=== PATIENT | male | born 1955 | race Caucasian/White ===

== ENCOUNTER → 2020-07-06 07:54 | Outpatient (CLI) | payer MEDICARE ==
[2020-05-20 12:49] VITALS: BMI 27.2
[~2020-07-06 07:54] MED LIST: AMBIEN10 MG PO; BAYER CHEWABLE81 MG PO; FLAGYL500 MG PO; LEVOFLOXACIN500 MG PO; LIPITOR40 MG PO; MUCINEX600 MG PO; OMEPRAZOLE20 M1 PO; TORADOL10 MG PO; VYVANSE50 MG PO; ZOFRAN4 MG PO
== END | disposition home or self-care (01) ==
LOC: D.CT 07:54
PROVIDERS: ATTEND Nurse Practitioner
DX: K57.92 Diverticulitis of intestine, part unspecified, without perforation or abscess without bleeding (principal)

== ENCOUNTER 2020-08-04 09:26 | Inpatient (IN) | payer MEDICARE ==
[~2020-08-04] VITALS: Ht 180.3 cm; Wt 83.9 kg
[2020-08-10] MEDS ORDERED: VYVANSE50 MG PO (10:27)
[2020-08-11 08:45] LABS: BASOPHILS 0.3 % (0-2); HEMATOCRIT 49.4 % (42.0-54.0); HEMOGLOBIN 17.2 g/dL (13.5-17.5); IMMATURE GRANULOCYTES 0.3 % (0-5); LYMPHOCYTE ABS# 1.47 10x3/uL (1.32-3.57); LYMPHOCYTES 23.2 % (15-50); MCH 34.5 pg (26.0-34.0); MCHC 34.8 g/dL (31.0-37.0); MCV 99.2 fL (80.0-100.0); MEAN PLATELET VOLUME 9.6 fL (7.4-10.4); MONOCYTES 8.2 % (2-11); NEUTROPHIL ABS# 4.12 10x3/uL (1.78-5.38); PLATELET COUNT 229 10x3/uL (130-400); RBC 4.98 10x6/uL (4.20-6.10); WBC 6.3 10x3/uL (4.8-10.8)
[2020-08-11 08:54] LABS: CALC OSMOLALITY 278 mosm/kg (275-300); CALCIUM 10.1 mg/dL (8.5-10.1); CARBON DIOXIDE 21.2 mmol/L (21.0-32.0); CHLORIDE - SERUM 104 mmol/L (98-107); GLUCOSE 109 mg/dL (74-106); POTASSIUM - SERUM 4.6 mmol/L (3.5-5.1); SODIUM 138 mmol/L (136-145); UREA NITROGEN 18 mg/dL (7-18); eGFR NON AFRICAN AMERICAN 80 mL/min (90-120)
[2020-08-11] MEDS ORDERED: LEXAPRO20 MG PO (10:20)
[2020-08-11] MEDS ORDERED: LISINOPRIL10 MG PO (10:21)
[2020-08-11] MEDS ORDERED: AMBIEN10 MG PO (10:21)
[2020-08-11 10:29] VITALS: BP 146/88; BMI 26.0
[2020-08-11 16:40] VITALS: BP 155/93
[2020-08-11 17:41] VITALS: BP 148/85; BMI 25.8
[2020-08-11 21:00] VITALS: BP 147/82
[2020-08-12 00:54] VITALS: BP 124/73
--- NOTE | 2020-08-12 03:54 | NUR ---
ASSESSED AT THE BEGINNING OF THE SHIFT. PT IS ALERT AND ORIENTED, ABLE TO VERBALIZE NEEDS. HE WAS ANXIOUS TO GET STARTED WALKING EVEN THOURH IT WAS VERY SOON AFTER SURGERY. HE WAS WALKED WITH STAFF AROUND THE STATION MULTIPLE TIMES AND THEN WENT BACK TO BED. HE HAS EVEN GOTTEN BOWEL SOUNDS X'S 3 ALREADY. DRESSING REMAINS DRY AND INTACT. HE HAS A LEGAL RECORDS CLERK OF [employer] WHICH IS CONTROLLING HIS PAIN AND O2 AT 2 LITERS IF NEEDED.
[2020-08-12 05:00] VITALS: BP 96/64
[2020-08-12 08:09] VITALS: BP 138/89
--- NOTE | 2020-08-12 09:01 | NUR ---
ALERT AND ORIENTED. ASSESSMENT COMPLETE. DENIES NEEDS. BED LOW. CALL ORELLANA AND PERSONAL ITEMS IN REACH. WILL CONTINUE TO MONITOR.
--- NOTE | 2020-08-12 10:43 | NUR ---
GONZALEZ CLAMPED FOR BLADDER TRAINING.
--- NOTE | 2020-08-12 10:53 | NUR ---
SPOKE WITH DR AL ABOUT POSSIBLY REMOVING PATIENT'S GONZALEZ. STATES GONZALEZ NEEDS TO STAY. GONZALEZ UNCLAMPED.
[2020-08-12 12:20] VITALS: BP 138/76
[2020-08-12 17:29] VITALS: BP 134/76
[2020-08-12 21:03] VITALS: BP 132/71
[2020-08-13 04:29] VITALS: BP 124/79
--- NOTE | 2020-08-13 07:54 | NUR ---
ALERT AND ORIENTED. ASSESSMENT COMPLETE. DENIES NEEDS. BED LOW. CALL ORELLANA AND PERSONAL ITEMS IN REACH. WILL CONTINUE TO MONITOR.
[2020-08-13 10:07] VITALS: BP 128/69
--- NOTE | 2020-08-13 13:32 | NUR ---
PATIENT C/O FEELING WORSE TODAY THAN PAST 2 DAYS. STATES FEELS MORE BLOATED AND HAS STOPPED PASSING GAS LIKE HE WAS BEFORE. SPOKE WITH DR AL. STATES TO MAKE PATIENT NPO NOW. KUB ORDERED.
--- NOTE | 2020-08-13 13:36 | NUR ---
PATIENT MADE AWARE OF NPO STATUS AND KUB. VERBALIZED UNDERSTANDING.
[2020-08-13 15:00] VITALS: BP 137/77
[2020-08-13 18:28] VITALS: BP 134/72
--- NOTE | 2020-08-13 18:59 | NUR ---
GONZALEZ REMOVED PER ORDER.
[2020-08-14 04:53] VITALS: BP 115/83
[2020-08-14 09:22] VITALS: BP 141/74
--- NOTE | 2020-08-14 10:22 | NUR ---
PATIENT HOPING TO BE DC TODAY, STATES STILL NOT MOVING MUCH GAS BUT IS WALKING A LOT. NO NEEDS VOICED, REDRESSED IV SITE IT WAS LEAKING AND PATIENT REFUSED TO BE STUCK AGAIN. CL IN REACH CONTINUE WITH PLANOF CARE
[2020-08-14 13:03] VITALS: Ht 180.3 cm; Wt 83.9 kg
--- NOTE | 2020-08-14 13:51 | NUR ---
PATIENT FRUSTRATED GAS NOT SEEMS TO BE MOVING, ADMINISTERED REGLAN ORDERED. PATIENT STATES HE HAS WALKED, PACED ERC AND JUST WANTS SOMETHING DONE. EXPLAINED WE ARE DOING BEST WE CAN SOMETIMES IT JUST TAKES TIME. CL IN REACH CONTINUE WITH PLAN OF CARE
[2020-08-14 14:42] VITALS: BP 139/70
--- NOTE | 2020-08-14 14:49 | NUR ---
I have reviewed this patient and I concur with the Shift Assessment completed by the Licensed Practical Nurse today this shift.
[2020-08-14 18:55] VITALS: BP 149/78
[2020-08-14 20:00] VITALS: BP 114/78
--- NOTE | 2020-08-14 22:08 | NUR ---
PT LYING IN BED AT THIS TIME. NO COMPLAINTS OF PAIN NOR DISTRESS NOTED. ABLE TO MAKE WANTS AND NEEDS KNOWN CLEARLY. ABD INCISION DRESSING ARE DRY AND INTACT. BED IN LOWEST POSITION, CALL ORELLANA LIGHT IN REACH.
[2020-08-15] VITALS: BP 134/65
[2020-08-15 04:00] VITALS: BP 138/74
--- NOTE | 2020-08-15 09:30 | NUR ---
PATIENT UP AMBULATING AROUND NURSES STATION VERBALIZES THAT HE IS FRUSTRATED THAT HE IS "STILL BLOATED AND NOT PASSING GAS" EXPLAINED TO PATIENT THAT THIS TAKES TIME AND THAT AMBULATING DOES HELP. PATIENT NOT HAPPY WITH CIRCUMSTANCES. CONTINUE WITH PLAN OF CARE
--- NOTE | 2020-08-15 10:20 | MORECARE ---
CASE MANAGEMENT DISCHARGE SUMMARY PATIENT: JOSUE JORDAN UNIT: [id number] ADM DATE: 08/11/20 AGE: 64 : 55 SEX: M ROOM/BED: D.2218 AUTHOR: JAX MERAZ PHYSICIAN: REFERRING PHYSICIAN: GASTON AL MD DATE OF SERVICE: 08/15/20 Case Management Discharge Planning Summary DCP REVIEW SUMMARY ANTICIPATED D/C DATE: EXPECTED LOS : CASE STATUS: DCP Initiated INITIAL REVIEW: 08/11/2020 INITIAL REVIEWER: Kathy Black FINAL DISCHARGE DISPOSITION: 01 : Home or Self Care (Routine Discharge) FINAL REVIEWER: FINAL REVIEW DATE: DCP Focus Questions & Answers QUESTION: ANSWER : PATIENT: JOSUE JORDAN ENCOUNTER: [id number] MEDICAL RECORD#: [id number] ADMISSION DATE: 08/11/2020 DISCHARGE DATE: ATTENDING MD: GASTON RAMOS : AGE: 64 MARITAL STATUS: M DC PLAN ID: [id number] FACILITY: [facility] PRINTED ON: 08/15/20 10:20 CT All edits/amendments must be made on the electronic document DICTATION DATE: 08/15/20 1020 [employer] DRIVER: DM 08/15/20 1020 RPT#: [id number] DC DATE: STATUS: ADM IN [facility] [address] [place] [address] END OF REPORT
--- NOTE | 2020-08-15 10:31 | MORECARE ---
CASE MANAGEMENT DISCHARGE SUMMARY PATIENT: JOSUE JORDAN UNIT: [id number] ADM DATE: 08/11/20 AGE: 64 : 55 SEX: M ROOM/BED: D.2218 AUTHOR: MARIYADOC PHYSICIAN: REFERRING PHYSICIAN: GASTON AL MD DATE OF SERVICE: 08/15/20 Case Management Discharge Planning Summary COMMENTS ENTERED DATE: 08/15/20 10:26 CT COMMENT TYPE: Discharge Planning REVIEWER: Kathy RANGEL IS HIS PCP [facility] ENTERED DATE: 08/15/20 10:24 CT COMMENT TYPE: Discharge Planning REVIEWER: Kathy Black CM met with patient to complete initial dc planning assessment. CM educated patient on the CM role and verbal consent given by patient to complete assessment. Patient lives at home with his where he is independent with his care. At discharge patient plans to return home and feels this is a safe discharge. CM discussed availability of home health, rehab services, and medical equipment. Patient denied known discharge needs at this time. 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 CM will continue to follow and will assist as needed with dc plans/needs. DCP REVIEW SUMMARY ANTICIPATED D/C DATE: EXPECTED LOS : CASE STATUS: DCP Initiated INITIAL REVIEW: 08/11/2020 INITIAL REVIEWER: Kathy Black FINAL DISCHARGE DISPOSITION: 01 : Home or Self Care (Routine Discharge) FINAL REVIEWER: FINAL REVIEW DATE: DCP Focus Questions & Answers DCP Screen QUESTION: ANSWER High Risk Factors: : None Walking limitation: Patient stated self rated walking limitation present? : No Age: : 45 - 64 Prior living environment: : Lives with others Disability ranking: : Grade 1: No significant disability DCP Evaluation QUESTION: ANSWER Patient's ability to cope with chronic illness : d. No chronic illness Patient and/or caregiver agree upon recommended discharge plan? : Yes Family / Caregiver's ability to cope with chronic illness: : a. Adequate (ability to meet patient's medical needs, ensures patient attends medical appts.) Patient's current cognitive status: : *Oriented to person, place, situation, time and present Does the patient have the ability to pay for or attain post discharge needs / services? : Yes Functional screen assessment: : No issues identified Physical Status: : Independent with ADL's Family / Caregiver's ability to cope with chronic illness: : a. Adequate (ability to meet patient's medical needs, ensures patient attends medical appts.) Equipment needed for post hospitalization: : None Is there a likelihood that the patient will require additional services to return to the preadmission environment? : No Living Arrangements: : Home with Spouse/Significant Other Results of this evaluation have been discussed with: : Patient Patient with capacity for self-care or can be cared for in same environment as prior to hospitalization? : Yes Baseline cognitive status: : Oriented to place Physical environment modification needed / anticipated for discharge: : No Medication Management: : Patient states can afford medications Planned post hospital services available for patient? : No Pharmacy name(s): : [facility] Planned post hospital services covered by insurance plan? : No Does Patient have transportation to get home and to follow-up medical appointments when discharged from the hospital? : Yes Would patient like to participate in any Care Coordination programs (if applicable): : Not applicable Comments: : will drive him home Does the patient have electricity at home? : Yes Does the patient have running water in their house? : Yes Equipment in use: : None Mental health screen: : No mental health history Psychosocial status: : Independent adult (18-64) Abuse/Neglect: : None DCP Re-evaluation QUESTION: ANSWER Would patient like to participate in any Care Coordination programs (if applicable): : Not applicable PATIENT: JOSUE JORDAN ENCOUNTER: [id number] MEDICAL RECORD#: [id number] ADMISSION DATE: 08/11/2020 DISCHARGE DATE: ATTENDING MD: GASTON RAMOS : AGE: 64 MARITAL STATUS: M DC PLAN ID: [id number] FACILITY: [facility] PRINTED ON: 08/15/20 10:31 CT All edits/amendments must be made on the electronic document DICTATION DATE: 08/15/20 [address] FLOOR LAYER: DELIA 08/15/20 1031 RPT#: [id number] DC DATE: STATUS: ADM IN [facility] [address] [place] [address] END OF REPORT
--- NOTE | 2020-08-15 13:02 | NUR ---
I have reviewed this patient and I concur with the Shift Assessment completed by the Licensed Practical Nurse today this shift.
[2020-08-15 13:23] VITALS: BP 154/92
[2020-08-15 18:55] VITALS: BP 153/87
[2020-08-15 20:00] VITALS: BP 165/103
[2020-08-16 04:00] VITALS: BP 143/81
--- NOTE | 2020-08-16 06:36 | NUR ---
PATIENT HAS WALED IN TH HALLS, BUT STILL HAS HAD NO BOWEL MOVEMENT. HE HAS BEEN UP OFF AND ONN THROUGH THE NIGHT. HE IS CURRENTLY RESTING IN BED WITH HIS EYES CLOSED.
[2020-08-16 08:49] VITALS: BP 133/77
--- NOTE | 2020-08-16 08:52 | NUR ---
PATIENT UP IN BATHROOM THIS MORNING, STATED HE IS HAVING VERY LIGHT COLOR WATER STOOL, "[place] LIKE URINATING FROM OTHER END" PER PATIENT. STATED HE DID NOT NEED PAIN MEDICATION LAST NIGHT HE IS NOT IN PAIN JUST UNCOMFORTABLE. PATIENT HAS TEST IN MEDICAL IMAGING TODAY, NO NEEDS VOICED, CL IN REACH CONTINUE WITH PLAN OF CARE
[2020-08-16 12:19] VITALS: BP 151/92
--- NOTE | 2020-08-16 13:39 | NUR ---
Nutrition follow-up: Diet advanced to full liquids PO intake remains poor due to continued gas, bloating Is having some liquid stools POD 5 of colectomy Meds: regular, miralax Wt: 184# Pt would benefit from short-term ProcalAmine PPN @ 100 ml/hr due to poor po intake at this time RDN follow-up: 08/18/20
--- NOTE | 2020-08-16 13:52 | NUR ---
I have reviewed this patient and I concur with the Shift Assessment completed by the Licensed Practical Nurse today this shift.
[2020-08-16 18:40] VITALS: BP 147/98
[2020-08-16 20:00] VITALS: BP 145/82
[2020-08-17] VITALS: BP 126/77
[2020-08-17 04:00] VITALS: BP 134/73
--- NOTE | 2020-08-17 08:03 | NUR ---
PATIENT DENIES PAIN, HE APPEARED TO SLEEP WELL THROUGH THE NIGHT
== END 2020-08-17 09:43 | disposition home or self-care (01) | DRG 330 ==
LOC: D.SDCHOLD 08-07 18:00 → D.MS 08-11 08:22 → D.SDCHOLD 08-11 10:30 → D.MS 08-11 16:16 → D.SDCHOLD 08-11 18:00 → D.MS 08-17 09:43
PROVIDERS: ADMIT Surgery; ATTEND Surgery
PROC: 0DTN0ZZ Resection of Sigmoid Colon, Open Approach (ICD-10-PCS; principal; 2020-08-11 10:30)
DX: K57.92 Diverticulitis of intestine, part unspecified, without perforation or abscess without bleeding (principal); K91.30 Postprocedural intestinal obstruction, unspecified as to partial versus complete; Y83.9 Surgical procedure, unspecified as the cause of abnormal reaction of the patient, or of later complication, without mention of misadventure at the time of the procedure; E78.5 Hyperlipidemia, unspecified